=== PATIENT | male | born 1985 | race Caucasian/White ===

== ENCOUNTER 2020-05-17 22:35 | Emergency (ER) | payer BC ==
[~2020-05-17] VITALS: Ht 177.8 cm; Wt 96.0 kg
[~2020-05-17 22:35] MED LIST: ACID CONTROL150 MG PO; AUGMENTIN 875-1 EACH PO; BENADRYL25 MG PO; EPINEPHRIN0.3 MG/0.3 IM; KEFLEX500 MG PO; NAPROSYN500 MG PO; NORCO 5-325 TA1 EACH PO; OMEPRAZOLE20 MG PO; PREDNISONE20 MG PO; PROTONIX20 MG PO; ZANTAC150 MG PO; ZOLPIDEM TART12.5 MG PO
[2020-05-17] MEDS ORDERED: NORCO 5-325 TA1 EACH PO (23:22)
== END 2020-05-17 23:43 | disposition home or self-care (01) ==
LOC: ED 22:35
DX: H16.133 Photokeratitis, bilateral (principal); W89.8XXA Exposure to other man-made visible and ultraviolet light, initial encounter; F17.200 Nicotine dependence, unspecified, uncomplicated; Z91.030 Bee allergy status; Z88.8 Allergy status to other drugs, medicaments and biological substances; Z91.018 Allergy to other foods
CPT/HCPCS: 99283

== ENCOUNTER 2023-07-22 19:47 | Emergency (ER) | payer OTHER ==
[~2023-07-22] VITALS: Ht 172.7 cm; Wt 96.0 kg
[2023-07-22 21:10] VITALS: BP 124/98
== END 2023-07-22 21:10 | disposition left against medical advice (07) ==
LOC: ED 19:47
DX: T54.3X1A Toxic effect of corrosive alkalis and alkali-like substances, accidental (unintentional), initial encounter (principal); T24.422A Corrosion of unspecified degree of left knee, initial encounter; Z53.29 Procedure and treatment not carried out because of patient's decision for other reasons; F17.200 Nicotine dependence, unspecified, uncomplicated; Y93.E9 Activity, other interior property and clothing maintenance; Z91.030 Bee allergy status; Z91.018 Allergy to other foods; Z88.8 Allergy status to other drugs, medicaments and biological substances
CPT/HCPCS: 99283

== ENCOUNTER 2023-12-30 16:57 | Emergency (ER) | payer OTHER ==
[~2023-12-30] VITALS: Ht 180.3 cm; Wt 93.0 kg
[2023-12-30] MEDS ORDERED: TETRACAINE HCL 0.5% 4 ML BTL OD SCH (17:15)
[2023-12-30 18:45] VITALS: BP 122/95
[2023-12-30] MEDS ORDERED: IBUPROFEN 600 MG TAB PO ONE (18:45)
[2023-12-30] MEDS ORDERED: HYDROCODONE/ACETA 7.5/325 TAB PO ONE (18:45)
[2023-12-30] MEDS ORDERED: ERYTHROMYCIN 3.5 GM HOME.PACK OP ONE (18:45)
== END 2023-12-30 18:45 | disposition other institution, planned readmission (95) ==
LOC: ED 16:57
DX: S05.01XA Injury of conjunctiva and corneal abrasion without foreign body, right eye, initial encounter (principal); X58.XXXA Exposure to other specified factors, initial encounter; F17.200 Nicotine dependence, unspecified, uncomplicated; Z91.030 Bee allergy status; Z88.8 Allergy status to other drugs, medicaments and biological substances; Z91.018 Allergy to other foods; Z53.29 Procedure and treatment not carried out because of patient's decision for other reasons
CPT/HCPCS: 99283

== ENCOUNTER 2025-04-03 10:10 | Emergency (ER) | payer OTHER ==
[~2025-04-03] VITALS: Ht 180.3 cm; Wt 87.6 kg
[2025-04-03] MEDS ORDERED: OXYCODONE/APAP 5/325 TAB PO ONE (13:30)
[2025-04-03] MEDS ORDERED: ONDANSETRON 4 MG TAB ODT SL ONE (13:30)
[2025-04-03 14:53] VITALS: BP 138/95
== END 2025-04-03 13:20 | disposition home or self-care (01) ==
LOC: ED 10:10
DX: M25.521 Pain in right elbow (principal); X58.XXXA Exposure to other specified factors, initial encounter; Y93.53 Activity, golf; F17.200 Nicotine dependence, unspecified, uncomplicated; Z91.030 Bee allergy status; Z91.018 Allergy to other foods; Z88.8 Allergy status to other drugs, medicaments and biological substances
CPT/HCPCS: 73080; 99283